=== PATIENT | male | born 1985 | race Caucasian/White ===

== ENCOUNTER 2024-09-18 14:19 | Observation (INO) | payer SELFPAY ==
[2024-09-18] VITALS (11 sets, daily range): BP systolic 118–163; BP diastolic 79–106
[~2024-09-18] VITALS: Ht 188 cm; Wt 98.0 kg
[2024-09-18] MEDS ORDERED: XARELTO20 MG PO (17:14)
[2024-09-18] MEDS ORDERED: OMEP20ER PO (17:15)
[2024-09-18] MEDS ORDERED: Dexamethasone Sod Phos 10 MG/ML 1ML VIAL ONE (17:24)
[2024-09-18] MEDS ORDERED: FentaNYL Citrate 50 MCG/ML 2 ML Injection ONE (17:24)
[2024-09-18] MEDS ORDERED: Ondansetron HCl 2 MG / ML 2ML Vial ONE (17:24)
[2024-09-18] MEDS ORDERED: CeFAZolin Sodium 2,000 MG in NS 100 ML IV SCH (17:25)
[2024-09-18] MEDS ORDERED: CeFAZolin Sodium 2,000 MG VIAL ONE (17:32)
[2024-09-18] MEDS ORDERED: HYDROmorphone HCl/Pf 1MG SYR IV PRN (17:35)
[2024-09-18] MEDS ORDERED: FentaNYL Citrate 50 MCG/ML 2 ML Injection IV PRN ×4 (17:35→18:40)
[2024-09-18] MEDS ORDERED: Ondansetron HCl 2 MG / ML 2ML Vial IV PRN ×2 (17:35→18:40)
[2024-09-18] MEDS ORDERED: Midazolam HCl 1MG / ML 2ML Vial IV PRN (17:35)
[2024-09-18] MEDS ORDERED: Metoclopramide HCl 5MG / ML 2ML Vial IV PRN (17:40)
--- NOTE | 2024-09-18 17:52 | NUR ---
History, Chart, Medications and Allergies reviewed before start of procedure. Pre-Op teaching done. Pt verbalizes understanding. Patient confirms NPO status and agrees with scheduled surgery.
[2024-09-18] MEDS ORDERED: CHANTIX1 MG PO (18:06)
[2024-09-18] MEDS ORDERED: Bupivacaine 0.5% HCl 5 MG/ML 30MLVIAL ONE (18:12)
[2024-09-18] MEDS ORDERED: Ketorolac Tromethamine 30mg Vial ONE (18:17)
--- NOTE | 2024-09-18 18:26 | NUR ---
09/18/24 182 Milad Antoine 2G ANCEF GIVEN BY ANESTHESIA AT 1758
[2024-09-18] MEDS ORDERED: HYDROcodone 5-APAP 325 TAB PO PRN (18:40)
--- NOTE | 2024-09-18 21:25 | NUR ---
DISCHARGE PATIENT WAS ABLE TO VOID SPONTANEOUSLY W/O DIFFICULTY, 475 MLS. ABLE TO MEET DISCHARGE CRITERIA. PT HAS WORKED WITH PHYSICAL THERAPY, DENIES N/T IN BLE. ABLE TO MOVE BOTH LEGS ON COMMAND. NO REDDNESS OR SWELLING NOTED IN LLE. DRESSING APPEARS C/D/I, NOTED TO HAVE TWO PEA SIZE SPOTS OF SS EXUDATE. PT REMAINS A/OX4, VSS, DENIES ANY PAIN. IV REMOVED BY GAUGE AND WEIGH MACHINE OPERATOR. DISCHAGRE INSTRUCTIONS REVIEWED WITH PATIENT AND , PROVIDED WITH AQUACELS FOR DRESSING CHANGES. ANSWERED ALL QUESTIONS, PATIENT AND DENIES ANY FURTHER NEEDS OR CONCERNS AT THIS TIME. PT WHEELED OUT BY GAUGE AND WEIGH MACHINE OPERATOR TO PERSONAL VEHICLE AT 2114
[2024-09-18] MEDS ORDERED: Ampicillin Sod/Sulbactam Sod 3 GM in NS 100 ML IV SCH (22:00)
[2024-09-19 04:20] VITALS: BP 116/75
--- NOTE | 2024-09-19 04:52 | NUR ---
SHIFT SUMMARY POD1 PERIANAL ABSCESS DRAINAGE. DRESSING REMAINS INTACT, IT IS ONLY 4X4 GAUZE. LIGHT SS DRAINAGE NOTED. VSS. PT SLEPT WELL T/O THE NIGHT. MEDICATED FOR PAIN WITH ORAL PAIN MEDICATION, PT REPORTS TOLLERABLE RELIEF. AMBULATED TO THE BATHROOM LAST NIGHT, VOIDING W/O DIFFICULTY. NO BM NOTED. RECIEVING IV ABX PER EMAR. OTHERWISE, NO ACUTE EVENTS NOTED. PT REPORTS HE IS EXCITED TO BE DISCHARGED, BUT DOES NOT KNOW HOW MUCH IV ABX IS REQUIRED. OVERALL, NO ACUTE EVENTS NOTED
--- NOTE | 2024-09-19 07:24 | NUR ---
JILL LAZARO TO ROOM, REMOVED PACKING. PT PAINFUL WITH THIS - NO PAIN MEDS AVAILABLE YET- PT AWARE, AGREEABLE. VSS. AXO4. INCISION SITE REDRESSED WITH GAUZE- WOUND CARE ORDERS DELIVERED VIA DR MELCHOR. PLAN FOR DC.
[2024-09-19 07:30] VITALS: BP 116/78
[2024-09-19] MEDS ORDERED: HYDR1TAB94 PO (08:11)
[2024-09-19] MEDS ORDERED: AMOX-CLAV 875-1 EAC1 PO (08:12)
[2024-09-19] MEDS ORDERED: Enoxaparin 40 MG/0.4 ML SYR SC SCH (09:00)
--- NOTE | 2024-09-19 10:05 | NUR ---
PT DC'D AT 1010 ASSUMEED CARE AT 0700. AXO4. DR MELCHOR REMOVED PACKING. WOUND INSTRUCTIONS PROVIDED. VSS. DC ORDERS OBTAINED. PAIN TREATED PER EMAR. PERIANAL WOUND NONBLEEDING AT THIS TIME. DC INSTRUCTIONS PROVIDED. PT WITH BELONGINGS. OUT OF ROOM @1010 TO MEET SPOUSE. WALKED OUT OF ROOM.
== END 2024-09-19 10:11 | disposition home or self-care (01) ==
LOC: ER 14:19 → SURS 18:38
PROVIDERS: ADMIT Surgery
PROC: 0D9QXZX Drainage of Anus, External Approach, Diagnostic (ICD-10-PCS; principal; 2024-09-18 13:30)
DX: K61.0 Anal abscess (principal); F17.210 Nicotine dependence, cigarettes, uncomplicated; Z86.711 Personal history of pulmonary embolism; Z86.718 Personal history of other venous thrombosis and embolism; Z79.01 Long term (current) use of anticoagulants; Z79.899 Other long term (current) drug therapy
CPT/HCPCS: 87070; 87075; 87076; 87147; 99284; A9270; J0295; J0690; J1100; J1885; J2250; J2405; J2704; J3010; J7120